=== PATIENT | female | born 1940 | race Caucasian/White ===

== ENCOUNTER → 2017-03-12 17:36 | Outpatient (CLI) | payer MEDICARE, OTHER ==
[2016-01-06 13:36] VITALS: BMI 25.0
[~2017-03-12 17:36] MED LIST: BAYER CHEWABLE81 MG PO; HYDROCHLOROTHIA25 MG PO; ISOSORBIDE MONO30 M1 PO; LOVASTATIN10 MG PO; LOW DOSE ASPIRI81 M1 PO; PLAQUENIL200 MG PO; PLAVIX75 MG PO; PROTONIX40 MG PO; TOPROL XL50 MG PO
== END | disposition home or self-care (01) ==
LOC: D.MAMMO 16:00
DX: Z12.31 Encounter for screening mammogram for malignant neoplasm of breast (principal)

== ENCOUNTER → 2018-09-18 08:56 | Outpatient (CLI) | payer MEDICARE, OTHER ==
[2016-01-06 13:36] VITALS: BMI 25.0
== END | disposition home or self-care (01) ==
LOC: D.US 09-16 09:00
DX: R10.31 Right lower quadrant pain (principal)

== ENCOUNTER → 2019-07-17 13:30 | Outpatient (CLI) | payer MEDICARE, BC ==
[2016-01-06 13:36] VITALS: BMI 25.0
== END | disposition home or self-care (01) ==
LOC: D.LAB 13:30
PROVIDERS: ATTEND Family Medicine
DX: M54.5 Low back pain (principal); M19.90 Unspecified osteoarthritis, unspecified site

== ENCOUNTER → 2019-07-25 10:13 | Outpatient (CLI) | payer MEDICARE, BC ==
[2016-01-06 13:36] VITALS: BMI 25.0
== END | disposition home or self-care (01) ==
LOC: D.US 10:13
PROVIDERS: ATTEND Family Medicine
DX: I73.9 Peripheral vascular disease, unspecified (principal)

== ENCOUNTER 2019-07-28 09:59 | Emergency (ER) | payer MEDICARE, BC ==
[~2019-07-28] VITALS: Ht 167.6 cm; Wt 75.0 kg
[2019-07-28 10:01] VITALS: Ht 167.6 cm; Wt 75.0 kg
[2019-07-28 10:33] LABS: BASOPHILS 0.4 % (0-2); EOSINOPHILS 1.2 % (0-7); HEMATOCRIT 38.6 % (36.0-48.0); IMMATURE GRANULOCYTES 0.2 % (0-5); LYMPHOCYTES 24.2 % (15-50); MCH 32.3 pg (26.0-34.0); MCHC 33.7 g/dL (31.0-37.0); MCV 95.8 fL (80.0-100.0); MEAN PLATELET VOLUME 9.4 fL (7.4-10.4); MONOCYTES 7.5 % (2-11); NEUTROPHILS 66.5 % (40-80); PLATELET COUNT 253 10x3/uL (130-400); RBC 4.03 10x6/uL (4.00-5.40); RDW 12.2 % (11.5-14.5); WBC 5.6 10x3/uL (4.8-10.8)
[2019-07-28 10:45] LABS: ALBUMIN 3.4 g/dL (3.4-5.0); ALKALINE PHOSPHATASE 77 U/L (46-116); ALT (SGPT) 18 U/L (10-68); CALC OSMOLALITY 283 mosm/kg (275-300); CALCIUM 8.9 mg/dL (8.5-10.1); CARBON DIOXIDE 27.7 mmol/L (21.0-32.0); CHLORIDE - SERUM 107 mmol/L (98-107); CREATININE - SERUM 0.8 mg/dL (0.6-1.3); GLUCOSE 99 mg/dL (74-106); POTASSIUM - SERUM 4.7 mmol/L (3.5-5.1); PROTEIN - SERUM 6.9 g/dL (6.4-8.2); SODIUM 142 mmol/L (136-145); UREA NITROGEN 16 mg/dL (7-18); eGFR NON AFRICAN AMERICAN 73 mL/min (90-120)
[2019-07-28 10:54] LABS: C-REACTIVE PROTEIN 0.3 mg/dL (0.0-0.9); CREATINE KINASE 126 UL (21-215); MAGNESIUM - SERUM 2.1 mg/dL (1.8-2.4)
[2019-07-28 10:56] LABS: TROPONIN-I < 0.017 ng/mL (0.000-0.060)
[2019-07-28 12:21] LABS: ERYTHROCYTE SEDIMENTATION RATE 10 mm/hr (0-30)
[2019-07-28 12:29] VITALS: BP 175/73
== END 2019-07-28 12:30 | disposition short-term general hospital (02) ==
LOC: D.ER 09:59
PROVIDERS: Family Medicine
DX: R53.1 Weakness (principal); G72.89 Other specified myopathies